=== PATIENT | female | born 1985 | race Caucasian/White ===

== ENCOUNTER 2017-04-20 11:59 | Inpatient (IN) | payer OTHER ==
[~2017-04-20] VITALS: Ht 167 cm; Wt 82.6 kg
[2017-05-29] MEDS ORDERED: RINGERS SOLUTION,LACTATED 1,000 ML IV PRN (14:33)
[2017-05-29] MEDS ORDERED: OXYTOCIN 30 UNITS/LACT RINGERS 500 ML IV PRN (14:33)
[2017-05-29] MEDS ORDERED: METOCLOPRAMIDE HCL 5 MG/ML 2 ML VIAL IVP PRN (14:45)
[2017-05-29] MEDS ORDERED: CITRIC ACID/SODIUM CITRATE 30 ML SOLUTION UDCUP PO PRN (14:45)
[2017-05-29 18:50] VITALS: BP 112/64
[2017-05-29 19:26] LABS: BASOPHILS % (AUTO) 0.1 % (0.0-2.0); EOSINOPHILS % (AUTO) 0.6 % (1.0-6.0); HEMATOCRIT 35.8 % (36-46); HEMOGLOBIN 11.9 g/dL (12.0-16.0); LYMPHOCYTES # (AUTO) 1.7 K/uL (1.0-4.8); LYMPHOCYTES % (AUTO) 16.9 % (22.0-44.0); MEAN CORPUSCULAR HEMOGLOBIN 29.5 pg (26.0-34.0); MEAN CORPUSCULAR HGB CONC 33.4 G/dL (31.0-37.0); MEAN CORPUSCULAR VOLUME 88 fL (80-100); MONOCYTES # (AUTO) 0.7 K/uL (0.1-1.0); MONOCYTES % (AUTO) 6.9 % (2.0-9.0); NEUTROPHILS # (AUTO) 7.7 K/uL (1.8-7.7); NEUTROPHILS % (AUTO) 75.5 % (40.0-70.0); RED BLOOD CELL COUNT(AUTO) 4.04 MIL/uL (4.00-5.20); RED CELL DISTRIBUTION WIDTH 13.6 % (11.5-14.5); WHITE BLOOD COUNT (AUTO) 10.2 K/uL (4.5-11.0)
[2017-05-29] MEDS: RINGERS SOLUTION,LACTATED 1,000 ML IV SCH ×3 (19:26→23:25)
[2017-05-29] MEDS ORDERED: OXYGEN THERAPY IH SCH (20:00)
[2017-05-29] MEDS: FentaNYL CITRATE-PF 100 MCG/2 ML VIAL IVP PRN ×3 (21:53→23:24)
[2017-05-29 22:54] LABS: GLUCOSE,POINT OF CARE 76 MG/DL (70-110)
[2017-05-29] MEDS ORDERED: BUPIVACAINE HCL/PF 0.25% 30 ML VIAL ONE (23:01)
[2017-05-29] MEDS ORDERED: BUPIVACAINE HCL 0.125%/NS/PF 100 ML ED ONE (23:02)
[2017-05-29] MEDS ORDERED: BUPIVACAINE HCL 0.125%/NS/PF 100 ML ED PRN (23:47)
[2017-05-30] MEDS ORDERED: DiphenhydrAMINE HCL 50 MG/ML VIAL IVP PRN
[2017-05-30] MEDS ORDERED: ONDANSETRON HCL 4 MG/2 ML VIAL IVP PRN
[2017-05-30] MEDS: RINGERS SOLUTION,LACTATED 1,000 ML IV SCH (01:59)
[2017-05-30] MEDS ORDERED: GLYCERIN/WITCH HAZEL LEAF 40 PADS JAR TP PRN (09:00)
[2017-05-30] MEDS ORDERED: BENZOCAINE 20%/MENTHOL 56 GM SPRAY CANISTER TP PRN (09:00)
[2017-05-30] MEDS ORDERED: LANOLIN 7 GM OINTMENT TP PRN (09:00)
[2017-05-30] MEDS ORDERED: ACETAMINOPHEN/CODEINE 300-30 MG TABLET PO PRN ×2 (09:00)
[2017-05-30] MEDS: IBUPROFEN 600 MG TABLET PO PRN ×3 (09:39→21:49)
[2017-05-30] MEDS: MAGNESIUM HYDROXIDE SUSPENSION 30 ML UDCUP PO SCH (21:48)
[2017-05-30] MEDS: SENNA/DOCUSATE SODIUM 187-50 MG TABLET PO SCH (21:54)
[2017-05-31] MEDS: MAGNESIUM HYDROXIDE SUSPENSION 30 ML UDCUP PO SCH (08:58)
[2017-05-31] MEDS: SENNA/DOCUSATE SODIUM 187-50 MG TABLET PO SCH (08:58)
[2017-05-31] MEDS: IBUPROFEN 600 MG TABLET PO PRN (08:58)
[2017-05-31] MEDS ORDERED: IBUP-2071 PO (10:45)
== END 2017-05-31 11:45 | disposition home or self-care (01) | DRG 775 ==
LOC: UNDOADMOB 11:59 → 4S 11:59 → OBSVTOIN 05-29 14:33
PROVIDERS: ADMIT Obstetrics & Gynecology; ATTEND Obstetrics & Gynecology
PROC: 10E0XZZ Delivery of Products of Conception, External Approach (ICD-10-PCS; principal; 2017-05-30)
PROC: 0UQG7ZZ Repair Vagina, Via Natural or Artificial Opening (ICD-10-PCS; 2017-05-30)
PROC: 3E033VJ Introduction of Other Hormone into Peripheral Vein, Percutaneous Approach (ICD-10-PCS; 2017-05-30)
PROC: 00HU33Z Insertion of Infusion Device into Spinal Canal, Percutaneous Approach (ICD-10-PCS; 2017-05-30)
DX: O71.4 Obstetric high vaginal laceration alone (principal); Z37.0 Single live birth; Z3A.40 40 weeks gestation of pregnancy; Z79.899 Other long term (current) drug therapy; Z86.19 Personal history of other infectious and parasitic diseases
CPT/HCPCS: 82962; 86850; 86900; 86901; J2590; J3010; J3490; J7120